=== PATIENT | male | born 1940 | race Caucasian/White ===

== ENCOUNTER 2017-10-07 03:03 | Emergency (ER) | payer MEDICARE ==
[2017-10-07 03:45] LABS: #Basophils 0.1 thou/uL (0.0-0.2); #Eosinphils 0.1 thou/uL (0.0-0.7); #Monocytes 0.8 thou/uL (0.11-0.59); #Neutrophils 9.6 thou/uL (1.40-6.50); %Basophils 0.8 % (0.0-1.0); %Eosinophils 0.6 % (0.0-10.0); %Lymphocytes 8.7 % (21.0-51.0); %Monocytes 6.8 % (0.0-10.0); Hemoglobin 13.5 g/dL (14.0-18.0); Mean Corpuscular HGB CONC 34.9 g/dL (32.0-36.0); Mean Corpuscular Hemoglobin 32.4 pg (27.0-31.0); Mean Corpuscular Volume 92.8 fl (80.0-94.0); Platelet Count 200 thou/uL (130-400); RBC Distribution Width 12.8 % (11.5-14.5); Red Blood Cell (RBC) Count 4.17 mill/uL (4.70-6.10); White Blood Cell (WBC) Count 11.5 thou/uL (4.8-10.8)
[2017-10-07 04:12] LABS: ALT (SGPT) 25 U/L (8-55); AST (SGOT) 27 U/L (5-34); Albumin 3.8 g/dL (3.4-4.8); Alkaline Phosphatase 80 U/L (40-150); Anion Gap 15 mmol/L (10-20); BUN (Urea Nitrogen) 20 mg/dL (8.4-25.7); Bilirubin, Total 1.2 mg/dL (0.2-1.2); Calc. Creatinine Clearance 0 mL/min (70-130); Calcium 9.9 mg/dL (7.8-10.44); Carbon Dioxide 24 mmol/L (23-31); Chloride 102 mmol/L (98-107); Estimated GFR-MDRD 72; Globulin 3.3 g/dL (2.4-3.5); Glucose 128 mg/dL (83-110); Potassium 4.2 mmol/L (3.5-5.1); Protein, Total 7.1 g/dL (5.8-8.1); Sodium 137 mmol/L (136-145)
[2017-10-07 04:15] LABS: CKMB 3.5 ng/mL (0-6.6); Troponin I Less than 0.010 ng/mL (< 0.028)
--- NOTE | 2017-10-07 08:43 | RAD ---
AP VIEW CHEST: HISTORY: Cough. FINDINGS: AP view chest was obtained on 10/07/17. Comparison is made to a previous exam from 07/11/14. AP view chest demonstrates improved aeration in the right lung base. Some cardiomegaly is seen. Pul monary vascular congestion is seen. 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 There are areas of linear density in the left lung base. This may represent areas of atelectasis o r pneumonia in the left lung base. This appears unchanged since the previous comparison radiograph o f chest from 07/13/14 and possibly slightly increased since the previous comparison chest radiograph f rom 07/22/14. IMPRESSION: 1. Cardiomegaly and pulmonary vascular congestion. 2. Areas of scar in the left lung base with some possible increasing developing area of further scar ring or patchy pneumonia or atelectasis in the left lung base. Correlate with followup radiographs. POS: [facility]
== END 2017-10-07 05:56 | disposition home or self-care (01) ==
LOC: ERS 03:03
DX: R05 Cough (principal); I25.10 Atherosclerotic heart disease of native coronary artery without angina pectoris; E78.5 Hyperlipidemia, unspecified; I10 Essential (primary) hypertension; Z79.899 Other long term (current) drug therapy
CPT/HCPCS: 36415; 71045; 80053; 82553; 83605; 83880; 84484; 85025; 87040; 93005; J7620

== ENCOUNTER 2017-10-31 11:24 | Outpatient (CLI) | payer MEDICARE, OTHER ==
--- NOTE | 2017-10-31 13:11 | RAD ---
TWO VIEWS CHEST: Comparison: 07-13-14 History: Dyspnea. FINDINGS: Two views of the chest shows a normal sized cardiomediastinal silhouette. Opacity seen in the left eric ng base which may represent atelectasis or an infiltrate. No pleural effusion is seen. IMPRESSION: Left basilar atelectasis versus infiltrate. POS: [facility]
== END 2017-10-31 11:25 | disposition home or self-care (01) ==
LOC: RAD 11:24
PROVIDERS: ATTEND Internal Medicine Critical Care Medicine
DX: R06.00 Dyspnea, unspecified (principal)
CPT/HCPCS: 71046

== ENCOUNTER 2018-03-05 09:55 | Outpatient (CLI) | payer MEDICARE, OTHER ==
--- NOTE | 2018-03-05 11:51 | RAD ---
CHEST ONE VIEW: HISTORY: Dyspnea. COMPARISON: 10/31/2017 FINDINGS: Atherosclerosis of the aorta. Normal cardiac silhouette. Pulmonary vessels and hilum are normal. H yperinflation with chronic changes. There is no pneumothorax. Osteopenic changes are identified. IMPRESSION: Chronic changes with hyperinflation. POS: [facility]
== END 2018-03-05 09:56 | disposition home or self-care (01) ==
LOC: RAD 09:55
PROVIDERS: ATTEND Internal Medicine Critical Care Medicine
DX: R06.00 Dyspnea, unspecified (principal); R09.89 Other specified symptoms and signs involving the circulatory and respiratory systems
CPT/HCPCS: 71046

== ENCOUNTER 2018-03-20 23:33 | Emergency (ER) | payer MEDICARE, OTHER ==
[2018-03-21 00:23] LABS: Bilirubin Negative (Negative); Blood, Urine Negative (Negative); Clarity CLEAR (Clear); Glucose, Urine (Dipstick) Negative (Negative); Leukocyte Negative (Negative); Nitrite Negative (Negative); Protein, Urine (Dipstick) Negative (Neg-Trace); Specific Gravity, Urine 1.004 (1.002-1.036); Urobilinogen 0.2 mg/dL (0.2-1.0); pH, Urine 6.5 (5.0-9.0)
[2018-03-21 00:24] LABS: #Eosinphils 0.2 thou/uL (0.0-0.7); #Lymphocytes 1.3 thou/uL (1.20-3.40); #Monocytes 0.9 thou/uL (0.11-0.59); #Neutrophils 8.3 thou/uL (1.40-6.50); %Basophils 0.1 % (0.0-1.0); %Eosinophils 1.5 % (0.0-10.0); %Lymphocytes 12.2 % (21.0-51.0); %Monocytes 8.7 % (0.0-10.0); %Neutrophils 77.5 % (42.0-75.0); Hemoglobin 11.6 g/dL (14.0-18.0); Mean Corpuscular HGB CONC 32.4 g/dL (32.0-36.0); Mean Corpuscular Hemoglobin 28.9 pg (27.0-31.0); Mean Corpuscular Volume 89.4 fL (78.0-98.0); Mean Platelet Volume 8.3 fL (7.4-10.4); Platelet Count 198 thou/uL (130-400); RBC Distribution Width 12.7 % (11.5-14.5); Red Blood Cell (RBC) Count 4.02 mill/uL (4.70-6.10); White Blood Cell (WBC) Count 10.7 thou/uL (4.8-10.8)
[2018-03-21 00:48] LABS: ALT (SGPT) 26 U/L (8-55); AST (SGOT) 32 U/L (5-34); Albumin 3.6 g/dL (3.4-4.8); Alkaline Phosphatase 79 U/L (40-150); Anion Gap 15 mmol/L (10-20); BUN (Urea Nitrogen) 14 mg/dL (8.4-25.7); Bilirubin, Total 0.8 mg/dL (0.2-1.2); Calc. Creatinine Clearance 0 mL/min (70-130); Calcium 9.6 mg/dL (7.8-10.44); Carbon Dioxide 24 mmol/L (23-31); Chloride 96 mmol/L (98-107); Estimated GFR-MDRD 64; Globulin 3.3 g/dL (2.4-3.5); Glucose 111 mg/dL (83-110); Potassium 3.6 mmol/L (3.5-5.1); Protein, Total 6.9 g/dL (5.8-8.1); Sodium 131 mmol/L (136-145)
[2018-03-21] MEDS ORDERED: Fentanyl 100 MCG/2 ML VIAL ONE (01:23)
[2018-03-21] MEDS ORDERED: Ondansetron HCl/PF 4 MG/2 ML Vial ONE (02:38)
[2018-03-21] MEDS ORDERED: Morphine 4 MG/ML VIAL ONE (02:38)
--- NOTE | 2018-03-21 07:48 | RAD ---
PA AND LATERAL VIEWS CHEST: HISTORY: Pneumonia. Cough. FINDINGS: Comparison is made with the exam on 03/05/2018. The heart size is borderline. The aorta is tortuous. A new increased density is seen in the left eric ng base. The possibility of pneumonia should be considered. POS: [facility]
--- NOTE | 2018-03-21 09:02 | ULT ---
PRELIMINARY REPORT/[facility]/EMERGENTY AFTER-HOURS PROCEDURE US Abdomen Limited, Right Upper Quadrant CLINICAL HISTORY: 77 years old, male; Pain and condition or disease; Other: Constipation x 2 days; Abdominal pain; Loca lized; Right upper quadrant (ruq) TECHNIQUE: Real-time ultrasound of the right upper quadrant with image documentation. COMPARISON: No relevant prior studies available. FINDINGS: Liver: No acute findings. No mass. No intrahepatic bile duct dilation. Gallbladder: Gallstone within the gallbladder neck. No significant gallbladder wall thickening or per icholecystic fluid. Negative [place] sign. Common bile duct: Unremarkable. Pancreas: Limited visualization due to bowel gas. Unremarkable as visualized. Right kidney: No acute findings. No stones. No solid mass. No hydronephrosis. IMPRESSION: Cholelithiasis. Thank you for allowing us to participate in the care of your patient. Dictated and Authenticated by: Deric Greenwood MD 03/21/2018 2:25 AM Central Time ([place] & [place]) FINAL REPORT SONOGRAM RIGHT UPPER QUADRANT PERFORMED ON AN EMERGENCY BASIS: Date: 03/21/18 Time: 0150 hours HISTORY: Right upper quadrant pain. FINDINGS/IMPRESSION: Findings agree with the preliminary report by Amee. Gallstones are confirmed. Gallbladder is somewhat distended without point tenderness over the gallbladder fossa. Clinical correlation regarding other signs and symptoms of acute cholecystitis is required. POS: [facility]
== END 2018-03-21 03:00 | disposition home or self-care (01) ==
LOC: ERS 23:33
DX: K80.20 Calculus of gallbladder without cholecystitis without obstruction (principal); J18.9 Pneumonia, unspecified organism; I25.10 Atherosclerotic heart disease of native coronary artery without angina pectoris; E78.5 Hyperlipidemia, unspecified; I10 Essential (primary) hypertension; Z79.899 Other long term (current) drug therapy; Z79.891 Long term (current) use of opiate analgesic
CPT/HCPCS: 36415; 71046; 76705; 80053; 81003; 83690; 85025; 96361; 96374; 96375; J2270; J2405; J3010

== ENCOUNTER 2018-03-27 13:14 | Emergency (ER) | payer MEDICARE, OTHER ==
[2018-03-27 13:52] LABS: #Basophils 0.1 thou/uL (0.0-0.2); #Eosinphils 0.2 thou/uL (0.0-0.7); #Lymphocytes 1.3 thou/uL (1.20-3.40); #Monocytes 0.5 thou/uL (0.11-0.59); #Neutrophils 2.9 thou/uL (1.40-6.50); %Basophils 1.3 % (0.0-1.0); %Eosinophils 3.1 % (0.0-10.0); %Lymphocytes 25.7 % (21.0-51.0); %Monocytes 10.7 % (0.0-10.0); %Neutrophils 59.2 % (42.0-75.0); Hemoglobin 12.5 g/dL (14.0-18.0); Mean Corpuscular Volume 91.1 fL (78.0-98.0); Mean Platelet Volume 8.1 fL (7.4-10.4); Platelet Count 199 thou/uL (130-400); RBC Distribution Width 13.4 % (11.5-14.5); Red Blood Cell (RBC) Count 4.17 mill/uL (4.70-6.10); White Blood Cell (WBC) Count 4.9 thou/uL (4.8-10.8)
[2018-03-27 14:16] LABS: ALT (SGPT) 10 U/L (8-55); AST (SGOT) 16 U/L (5-34); Albumin 3.3 g/dL (3.4-4.8); Alkaline Phosphatase 70 U/L (40-150); Anion Gap 12 mmol/L (10-20); BUN (Urea Nitrogen) 21 mg/dL (8.4-25.7); Bilirubin, Total 0.6 mg/dL (0.2-1.2); Calc. Creatinine Clearance 0 mL/min (70-130); Calcium 9.1 mg/dL (7.8-10.44); Carbon Dioxide 27 mmol/L (23-31); Chloride 103 mmol/L (98-107); Estimated GFR-MDRD 79; Globulin 2.9 g/dL (2.4-3.5); Glucose 125 mg/dL (83-110); Lipase 50 U/L (8-78); Protein, Total 6.2 g/dL (5.8-8.1); Sodium 138 mmol/L (136-145)
[2018-03-27 14:18] LABS: CKMB 4.1 ng/mL (0-6.6); Troponin I Less than 0.010 ng/mL (< 0.028)
--- NOTE | 2018-03-27 15:25 | ULT ---
SONOGRAM RIGHT UPPER QUADRANT: HISTORY: Right upper quadrant pain. FINDINGS: Echogenic shadowing stone is present within the dependent portion of the gallbladder lumen. No gallb ladder wall thickening or pericholecystic fluid. The common duct is 0.6 cm. No gallbladder wall thi ckening or pericholecystic fluid. The liver is unremarkable without focal mass or intrahepatic bilia ry dilatation. No free fluid. Gallbladder is upper limits of normal in size. IMPRESSION: Cholelithiasis. No evidence of acute biliary obstruction. POS: [facility]
[2018-03-27 15:40] LABS: Bilirubin Negative (Negative); Blood, Urine Negative (Negative); Clarity CLEAR (Clear); Glucose, Urine (Dipstick) Negative (Negative); Leukocyte Negative (Negative); Nitrite Negative (Negative); Protein, Urine (Dipstick) Negative (Neg-Trace); pH, Urine 6.5 (5.0-9.0)
== END 2018-03-27 17:29 | disposition home or self-care (01) ==
LOC: ERS 13:14
DX: K80.20 Calculus of gallbladder without cholecystitis without obstruction (principal); R09.89 Other specified symptoms and signs involving the circulatory and respiratory systems; E78.5 Hyperlipidemia, unspecified; Z79.899 Other long term (current) drug therapy
CPT/HCPCS: 36415; 76705; 80053; 81003; 82553; 83690; 84484; 85025; 93005; 96360

== ENCOUNTER 2018-05-13 09:09 | Outpatient (CLI) | payer MEDICARE, OTHER ==
--- NOTE | 2018-05-13 12:22 | RAD ---
CHEST 2 VIEWS: Date: 05/13/18 COMPARISON: 03/05/18. 04/16/18. HISTORY: Dyspnea. FINDINGS: Atherosclerosis of aorta. Normal cardiac silhouette. Pulmonary vessels and hilum are normal. Costophr enic angles are clear. Hyperinflation with chronic changes in the lung parenchyma. Possible left lowe r lobe infiltrate. No pneumothorax or osseous abnormalities. IMPRESSION: 1. Hyperinflation. 2. Atherosclerosis. 3. Left lower lobe infiltrate. POS: [facility]
== END 2018-05-13 09:10 | disposition home or self-care (01) ==
LOC: RAD 09:09
PROVIDERS: ATTEND Internal Medicine Critical Care Medicine
DX: R06.00 Dyspnea, unspecified (principal); R91.8 Other nonspecific abnormal finding of lung field; I70.0 Atherosclerosis of aorta
CPT/HCPCS: 36415; 71046; 82533

== ENCOUNTER 2018-06-25 09:48 | Outpatient (CLI) | payer MEDICARE, OTHER ==
--- NOTE | 2018-06-25 15:40 | NM ---
NUCLEAR MEDICINE [place] BRAIN: Date: 06/25/18 HISTORY: 77-year-old male with G20, Parkinson's disease. TECHNIQUE: 130 mg of potassium iodide administered PO 1 hour prior to injection of radiopharmaceutical. 4.5 mCi of I-123 Ioflupane injected IV. 3 hours later, SPECT images of brain obtained in axial plane. FINDINGS: There is normal uptake in the bilateral caudate heads. In comparison, there is relatively weaker upta ke symmetrically in the bilateral putamina. IMPRESSION: Equivocal results. Relatively weak, but not absent, activity in the bilateral putamina. This could ei ther represent early Parkinsonism or a non-Parkinsonian disease. POS: [facility]
== END 2018-06-25 09:49 | disposition home or self-care (01) ==
LOC: NM 09:48
PROVIDERS: ATTEND Psychiatry & Neurology Neurology
DX: G20 Parkinson's disease (principal)
CPT/HCPCS: 78607; A9584

== ENCOUNTER 2018-09-03 22:39 | Inpatient (IN) | payer MEDICARE, OTHER ==
[2018-09-03] MEDS ORDERED: Cefepime 2 GM VIAL ONE (23:10)
--- NOTE | 2018-09-03 23:19 | RAD ---
CHEST ONE VIEW 09/03/18 HISTORY: Dyspnea. COMPARISON: Chest radiograph 05/13/18. FINDINGS: New right basilar air space opacity. No scarring in the left lung base. No pneumothorax. Heart size is enlarged. No acute osseous abnormality. Rotator cuff arthropathy on the right. IMPRESSION: New right basilar air space opacity concerning for infection or aspiration. POS: [facility]
[2018-09-03 23:29] LABS: ALT (SGPT) Less than 7 U/L (8-55); AST (SGOT) 10 U/L (5-34); Alkaline Phosphatase 88 U/L (40-150); Anion Gap 16 mmol/L (10-20); BUN (Urea Nitrogen) 22 mg/dL (8.4-25.7); Bilirubin, Total 1.7 mg/dL (0.2-1.2); Calc. Creatinine Clearance 0 mL/min (70-130); Calcium 9.8 mg/dL (7.8-10.44); Carbon Dioxide 22 mmol/L (23-31); Chloride 98 mmol/L (98-107); Estimated GFR-MDRD 63; Globulin 3.1 g/dL (2.4-3.5); Glucose 123 mg/dL (83-110); Potassium 3.6 mmol/L (3.5-5.1); Protein, Total 7.1 g/dL (5.8-8.1); Sodium 132 mmol/L (136-145)
[2018-09-03] MEDS ORDERED: Acetaminophen 500 MG TAB ONE (23:48)
[2018-09-03 23:55] LABS: #Lymphocytes 0.8 thou/uL (1.20-3.40); #Monocytes 0.6 thou/uL (0.11-0.59); #Neutrophils 6.4 thou/uL (1.40-6.50); %Basophils 0.5 % (0.0-1.0); %Eosinophils 0.2 % (0.0-10.0); %Lymphocytes 10.2 % (21.0-51.0); %Monocytes 7.5 % (0.0-10.0); %Neutrophils 81.6 % (42.0-75.0); Hemoglobin 13.2 g/dL (14.0-18.0); Mean Corpuscular Hemoglobin 30.3 pg (27.0-31.0); Mean Corpuscular Volume 91.7 fL (78.0-98.0); Mean Platelet Volume 9.7 fL (7.4-10.4); Platelet Count 116 thou/uL (130-400); Platelet Morphology Comment Appears Decreased; RBC Distribution Width 12.7 % (11.5-14.5); Red Blood Cell (RBC) Count 4.35 mill/uL (4.70-6.10); White Blood Cell (WBC) Count 7.8 thou/uL (4.8-10.8)
[2018-09-04 00:07] LABS: Bilirubin Small (Negative); Blood, Urine Negative (Negative); Clarity CLEAR (Clear); Glucose, Urine (Dipstick) Negative (Negative); Leukocyte Negative (Negative); Nitrite Negative (Negative); Protein, Urine (Dipstick) 30 mg/dL (Neg-Trace); pH, Urine 5.5 (5.0-9.0)
[2018-09-04 00:09] LABS: Bacteria/HPF None Seen HPF (None Seen); Hyaline Casts/LPF 0-3 HYALINE CAST LPF (0-3 Hyaline); Pathc Cast-AUWi Flag 0.27 (0-2.49); RBC/HPF 0-3 HPF (0-3); Squamous Epithelial 0-3 HPF (0-3); WBC/HPF 0-3 HPF (0-3)
[2018-09-04] MEDS ORDERED: Ondansetron PF 4 MG/2 ML Vial IVP PRN (00:28)
[2018-09-04] MEDS ORDERED: Zolpidem Tartrate 5 MG TAB PO PRN (00:28)
[2018-09-04] MEDS ORDERED: Acetaminophen 325 MG TAB PO PRN (00:28)
[2018-09-04 02:55] LABS: #Lymphocytes 0.6 thou/uL (1.20-3.40); #Monocytes 0.6 thou/uL (0.11-0.59); #Neutrophils 5.5 thou/uL (1.40-6.50); %Basophils 0.2 % (0.0-1.0); %Eosinophils 0.2 % (0.0-10.0); %Lymphocytes 9.3 % (21.0-51.0); %Monocytes 8.5 % (0.0-10.0); %Neutrophils 81.8 % (42.0-75.0); Hemoglobin 11.3 g/dL (14.0-18.0); Mean Corpuscular HGB CONC 33.7 g/dL (32.0-36.0); Mean Corpuscular Hemoglobin 30.3 pg (27.0-31.0); Mean Corpuscular Volume 89.9 fL (78.0-98.0); Mean Platelet Volume 9.7 fL (7.4-10.4); Platelet Count 109 thou/uL (130-400); RBC Distribution Width 12.5 % (11.5-14.5); Red Blood Cell (RBC) Count 3.74 mill/uL (4.70-6.10); White Blood Cell (WBC) Count 6.7 thou/uL (4.8-10.8)
[2018-09-04 03:09] LABS: Lactic Acid 0.9 mmol/L (0.5-2.2)
[2018-09-04 03:22] VITALS: BMI 18.3
[2018-09-04 03:36] LABS: Troponin I Less than 0.010 ng/mL (< 0.028)
[2018-09-04 03:40] LABS: Anion Gap 15 mmol/L (10-20); BUN (Urea Nitrogen) 19 mg/dL (8.4-25.7); Calc. Creatinine Clearance 57 mL/min (70-130); Calcium 8.2 mg/dL (7.8-10.44); Carbon Dioxide 17 mmol/L (23-31); Chloride 105 mmol/L (98-107); Estimated GFR-MDRD 89; Glucose 126 mg/dL (83-110); Potassium 3.1 mmol/L (3.5-5.1); Sodium 134 mmol/L (136-145)
[2018-09-04] MEDS: Sodium Chloride 0.9% 1,000 ML IV SCH (04:11)
--- NOTE | 2018-09-04 04:38 | HP ---
ADMITTING COMPLAINT: Cough and fevers. HISTORY OF PRESENT ILLNESS: This is a 77-year-old male, presenting to the hospital complaining of cough, fevers, and chills. The patient had evaluation done in the ER, chest x-ray done, was found to have pneumonia in right lower lobe middle lobe. The patient states that otherwise he has had past 3 to 4 weeks of fevers and chills. Temperatures taken axillary at home were elevated. The patient of note admits to past medical history of coronary artery disease, hypertension, prostate enlargement as well as hyperlipidemia. Denies any other issues. The patient does state that he was a smoker all of his life, however, quit approximately 10 years ago. The patient also admits that he has had an unintentional weight loss about 10-15 pounds in the last 7 to 8 months. The patient denies any other alleviating or aggravating factors. No other associated symptoms or complaints. The patient was seen examined in the ER. at bedside. All questions answered. REVIEW OF SYSTEMS: All systems reviewed. Pertinent positive in HPI, otherwise negative. ALLERGIES: PENICILLIN, UNKNOWN REACTION WHEN THE PATIENT TAKES PENICILLIN. HOME MEDICATIONS: See MAR. PAST MEDICAL HISTORY: Hypertension, hyperlipidemia, coronary artery disease, and BPH. FAMILY HISTORY: Positive for hypertension. SOCIAL HISTORY: Denies smoking currently, quit 10 years ago. Social drinker. PHYSICAL EXAMINATION: GENERAL: The patient is lying in bed, acute. No discomfort. HEENT: Pupils are equal, round, and reactive to light and accommodation. Oral cavity is moist and pink. NECK: Supple, mobile, nontender. Thyroid appreciated. PULMONARY: Clear to auscultation bilaterally. No increase in AP diameter. No respiratory distress. CARDIOVASCULAR: Regular rate and rhythm. S1 and S2. Faint murmur appreciated. ABDOMEN: Positive bowel sounds. Soft, nontender, nondistended. EXTREMITIES: 2+ peripheral pulses. No cyanosis, clubbing, or edema. NEUROLOGIC: Cranial nerves 2 through 12 are intact. No loss of sensory function. VITAL SIGNS: Blood pressure 120/85, respiratory rate of 18, temperature of 101.8, O2 saturation 98% on room air. LABORATORY DATA: CBC within normal limits. Basic metabolic panel, BNP at 132. Lactic acid slightly elevated at 2.5, otherwise normal. UA shows proteinuria and small amount of bilirubin. Chest x-ray positive for right basilar opacity concerning for pneumonia. ASSESSMENT: 1. Pneumonia. 2. Emphysema. 3. Hypertension. 4. BPH. 5. Hyperlipidemia. PLAN: At this point in time, we will admit the patient to internal medicine team. We will start the patient on Levaquin. We will give IV fluids as well at a low rate given concern for hypertension, resume home medications as needed. The patient wishes to remain a full code, p.r.n. medications. We will see how the patient days. Case and plan were discussed with patient and at length. They understood and agreed with this plan. Job ID: [id number]
[2018-09-04 08:11] LABS: Troponin I 0.012 ng/mL (< 0.028)
--- NOTE | 2018-09-04 08:24 | CT ---
PRELIMINARY REPORT/[facility]/EMERGENCY AFTER HOURS PROCEDURE: EXAM: CT Chest Without Contrast EXAM DATE/TIME: 09/04/2018 1:46 AM CLINICAL HISTORY: 77 years old, male; Signs and symptoms; Cough; Patient HX: Cough, pneumonia, copd, smoker, weight los s TECHNIQUE: Imaging protocol: Axial computed tomography images of the chest without intravenous contrast. Coronal reformatted images were created and reviewed. COMPARISON: No relevant prior studies available. FINDINGS: Lungs: Extensive multifocal consolidation in the lower lobes bilaterally, lingula, right middle lobe, and less severely in the posterolateral right upper lobe. The consolidation in the lingula is depend ent and consolidation in the right middle lobe and lower lobes is more severe dependently. Findings are compatible with pneumonia, very likely secondary to aspiration given the distribution. [place] t atelectasis in the left lower lobe. Pleural space: Normal. No pneumothorax. No pleural effusion. Heart: Normal. No cardiomegaly. No pericardial effusion. Aorta: 4.2 cm fusiform aneurysmal dilatation of the ascending aorta. No rupture. Lymph nodes: Unremarkable. No enlarged lymph nodes. Bones/joints: Unremarkable. No acute fracture. Soft tissues: Unremarkable. Gallbladder and bile ducts: Cholelithiasis. No cholecystitis or biliary ductal dilatation. IMPRESSION: 1. Extensive bilateral pneumonia in the mid to lower lungs, likely secondary to aspiration as above. 2. 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 No rupture. Thank you for allowing us to participate in the care of your patient. Dictated and Authenticated by: Florin H[place] MD 09/04/2018 2:29 AM Central Time ([place] & [place]) FINAL REPORT CT CHEST NONCONTRAST: DATE: 09/04/2018. DATE: Performed on an emergency basis at 0147 hours. HISTORY: Pneumonia. Cough. Weight loss. FINDINGS: Agree with the preliminary report by Dr. [place]. From [facility]. Extensive bibasilar consol idation. Consider aspiration. Prominent arterial calcification. Mild dilatation of the ascending aorta. Cholelithiasis. POS: [facility]
[2018-09-04] MEDS ORDERED: Isosorbide Dinitrate 5 MG TAB PO SCH (09:00)
[2018-09-04] MEDS ORDERED: MIDODRINE HCL PO PRN (10:48)
[2018-09-04] MEDS ORDERED: Cetirizine HCl 10 MG TAB PO PRN (10:48)
[2018-09-04] MEDS ORDERED: Loratadine 10 MG TAB PO PRN (10:54)
--- NOTE | 2018-09-04 11:01 | PDOC.PN ---
- Subjective Encounter Start Date: 09/04/18 Encounter Start Time: 10:59 Subjective: fever better, still coughing - Objective Resuscitation Status - Order Detail: 09/04/18 00:28 Resuscitation Status Routine Resuscitation Status: FULL: Full Resuscitation Discussed with: patient BETTY Reviewed: Yes Vital Signs & Weight: Vital Signs (12 hours) Temp Pulse Resp BP Pulse Ox 09/04/18 07:40 98.8 F 71 18 121/61 97 09/04/18 04:46 96 09/04/18 04:00 98.1 F 79 16 124/67 89 L 09/04/18 02:35 98.7 F 87 18 128/70 96 Weight Weight 120 lb 8 oz Result Diagrams: 09/04/18 02:45 09/04/18 02:45 Phys Exam - Physical Examination Neck: no JVD decreased BS, RLL rales Cardiovascular: RRR, no significant murmur Gastrointestinal: soft, positive bowel sounds Musculoskeletal: no edema Dx/Plan (1) PNA (pneumonia) Code(s): J18.9 - PNEUMONIA, UNSPECIFIED ORGANISM Status: Acute Qualifiers: Laterality: right Lung location: lower lobe of lung (2) COPD (chronic obstructive pulmonary disease) Status: Chronic Qualifiers: COPD type: emphysema Emphysema type: unspecified Qualified Code(s): J43.9 - Emphysema, unspecified (3) CAD (coronary artery disease) Code(s): I25.10 - ATHSCL HEART DISEASE OF [place] CORONARY ARTERY W/O ANG PCTRS Status: Acute Qualifiers: Coronary Disease-Associated Artery/Lesion type: [place] artery [place] vs. transplanted heart: [place] heart Associated angina: without angina Qualified Code(s): I25.10 - Atherosclerotic heart disease of [place] coronary artery without angina pectoris (4) HTN (hypertension) Code(s): I10 - ESSENTIAL (PRIMARY) HYPERTENSION Status: Acute Qualifiers: Hypertension type: essential hypertension Qualified Code(s): I10 - Essential (primary) hypertension - Plan Cultures pending, cont antibx -: cont home meds * .
[2018-09-04] MEDS: Heparin 5,000 UNITS/ML VIAL SC SCH ×2 (12:48→21:50)
[2018-09-04] MEDS: Carbidopa/Levodopa 25-100 mg Tablet PO SCH ×2 (15:49→21:50)
[2018-09-04] MEDS: Mometasone/Formoterol 120 PUFF INHALER INH SCH (18:47)
[2018-09-04] MEDS ORDERED: Artificial Tears 18 DROP/0.9 ML EA EYE PRN (20:07)
[2018-09-04] MEDS ORDERED: Tamsulosin HCl 0.4 MG CAP PO SCH (21:00)
[2018-09-04] MEDS ORDERED: Atorvastatin Calcium 40 MG TAB PO SCH ×2 (21:00)
[2018-09-04] MEDS: Aspirin 81 mg Enteric Coated Tablet PO SCH (21:50)
[2018-09-04] MEDS: Atorvastatin Calcium 40 MG TAB PO SCH (21:50)
--- NOTE | 2018-09-05 00:15 | CON ---
DATE OF CONSULTATION: HISTORY OF PRESENT ILLNESS: Mr. Dolan is a pleasant 77-year-old male. His says he has been doing extremely well lately with no cough. She says that he did not have fever at home, leaning on to this, so she had no reason to suspect an infection. He subsequently has been admitted with a diagnosis of pneumonia. We were consulted. PAST MEDICAL HISTORY: 1. Remarkable for admission in July 01 with volvulus leading to a laparotomy. 2. History of coronary artery disease. 3. History of hypertension. 4. Lipid disorder. 5. BPH. 6. Rotator cuff surgery. 7. Bilateral knee surgery. 8. Cataract surgery. SOCIAL HISTORY: he is a former smoker. ALLERGIES: REPORTS AN ALLERGY TO PENICILLIN. FAMILY HISTORY: Negative for lung disease in early age. REVIEW OF SYSTEMS: A 10-point review of systems is negative. He says he feels 100% better than when he came in. OBJECTIVE: VITAL SIGNS: On exam, he is afebrile, heart rates in the 70s, respiratory rate is 18, oximetry is 93% on room air, blood pressure 116/66. HEENT: Pupils are equal. Sclerae anicteric. NECK: Supple. No lymphadenopathy. LUNGS: Remarkable for crackles at both lung bases. HEART: Regular rhythm, S1 and S2 are normal. No murmur, gallop, or rub. ABDOMEN: Soft and nontender. No masses. EXTREMITIES: Without clubbing, cyanosis, or edema. NEUROLOGIC: Grossly nonfocal. LABORATORY DATA: CT shows dense alveolar infiltrate in both lung bases posteriorly. IMPRESSION: Pneumonia. He has no history to suggest aspiration, but he certainly could have silent aspiration. This is clearly community-acquired. He is clinically improving. From a chronic obstructive pulmonary disease standpoint, he appears to be stable. I will be happy to follow the other physicians caring for him. TIME SPENT: This is a 70-minute consult, 50% of the time spent on the unit coordinating care. Job ID: [id number]
[2018-09-05] MEDS: Sodium Chloride 0.9% 1,000 ML IV SCH (00:41)
[2018-09-05] MEDS: guaiFENesin ER 600 MG TAB PO PRN ×3 (01:57→23:40)
[2018-09-05] MEDS: Mometasone/Formoterol 120 PUFF INHALER INH SCH ×2 (06:05→20:09)
[2018-09-05] MEDS ORDERED: Non-Formulary Item 1 EACH (Fluticasone/Vilanterol [Breo Ellipta] 1 PUFF) INH SCH (09:00)
[2018-09-05] MEDS: Carbidopa/Levodopa 25-100 mg Tablet PO SCH ×3 (09:20→21:44)
[2018-09-05] MEDS: Heparin 5,000 UNITS/ML VIAL SC SCH (09:24)
--- NOTE | 2018-09-05 10:16 | PRG ---
DATE OF SERVICE: 09/05/2018 SUBJECTIVE: Bobby Dolan says he feels 100% better. He is sitting up in a chair, smiling. OBJECTIVE: GENERAL: He is in no distress. VITAL SIGNS: Oximetry is 92% on room air, heart rate is 87. He is afebrile, respiratory rate is 18, blood pressure 121/61. LUNGS: Remarkable for crackles at both lung bases. HEART: Regular rhythm. ABDOMEN: Soft. LABORATORY DATA: White count 6.7, hemoglobin 11.3, platelets 109. Sodium 134, potassium 3.1, chloride 105, bicarb 17, BUN 19, and creatinine 0.84. IMPRESSION: Respiratory failure. PLAN: We will switch him to p.o. antimicrobial therapy and consider discharging him in the morning, if he is stable throughout today. They live all way out in [place], so they are over an hour away from the hospital, so it is probably worthwhile to keep him one more night. I will see him in the office in followup in 2 weeks with a chest x-ray. Job ID: [id number]
--- NOTE | 2018-09-05 15:38 | RAD ---
MODIFIED BARIUM SWALLOW WITH SPEECH THERAPIST: Date; 09/05/18 HISTORY: Oropharyngeal dysphagia and feeding difficulties. EXPOSURE: 1.2 minutes of fluoroscopic time and 8.455 Gy*cm^2. FINDINGS/IMPRESSION: A modified barium swallow was performed by speech therapist. Penetration was seen with a large straw sip of thin liquids and also with residua during a swallow of regular diet/cracker. Please see dedicated speech therapy report for specific findings and recommendations. POS: [facility]
--- NOTE | 2018-09-05 16:17 | PDOC.PN ---
- Subjective Encounter Start Date: 09/05/18 Encounter Start Time: 14:00 Patient seen and examined for Sepsis. Feels better. No CP. Productive cough +. No new complaints. No overnight events - Objective Resuscitation Status - Order Detail: 09/04/18 00:28 Resuscitation Status Routine Resuscitation Status: FULL: Full Resuscitation Discussed with: patient MAR Reviewed: Yes Vital Signs & Weight: Vital Signs (12 hours) Temp Pulse Resp BP Pulse Ox 09/05/18 15:42 97.6 F 63 16 155/74 H 92 L 09/05/18 13:39 69 16 91 L 09/05/18 11:24 97.9 F 75 16 121/68 94 L 09/05/18 08:55 92 L 09/05/18 07:46 98.0 F 87 18 121/61 92 L 09/05/18 06:03 64 16 90 L Weight Weight 120 lb 8 oz I&O: 09/04/18 09/05/18 09/06/18 06:59 06:59 06:59 Intake Total 650 Balance 650 Result Diagrams: 09/04/18 02:45 09/04/18 02:45 EKG Reviewed by me: Yes (Tele SR) Phys Exam - Physical Examination Constitutional: NAD Respiratory: no wheezing, no rhonchi Cardiovascular: RRR, no rub Bibasilar rales Gastrointestinal: soft, non-tender, positive bowel sounds Musculoskeletal: no edema Neurological: non-focal, moves all 4 limbs Dx/Plan - Plan DVT proph w/SCDs 1. Acute respiratory failure/Sepsis with acute organ dysfunction due to B/L Pneumonia 2. Lactic acidosis 3. HTN 4. CAD 5. Swallow dysfunction 6. Hypokalemia 7. Thrombocytopenia/PCN allergy/BPH PLAN: Cont PO Atbx [employer] eval PT eval AM labs Review of Systems - Review of Systems Respiratory: negative: Cough, Dry, Shortness of Breath, Hemoptysis, SOB with Excertion, Pleuritic Pain, Sputum, Wheezing Cardiovascular: negative: chest pain, palpitations, orthopnea, paroxysmal nocturnal dyspnea, edema, light headedness, other - Medications/Allergies Allergies/Adverse Reactions: Allergies Allergy/AdvReac Type Severity Reaction Status Date / Time Penicillins Allergy Verified 09/04/18 03:31 Medications: Current Medications Acetaminophen (Tylenol) 650 mg PO Q4H PRN PRN Reason: Headache/Fever/Mild Pain (1-3) Albuterol/Ipratropium (Duoneb) 3 ml NEB [id number] PRN PRN Reason: SOB &/or Wheezing Albuterol/Ipratropium (Duoneb) 3 ml NEB TID-RT [facility] Last Admin: 09/05/18 13:39 Dose: 3 ml Artificial Tears (Tears Naturale) 1 drop EA EYE PRN PRN PRN Reason: . Last Admin: 09/04/18 21:48 Dose: 1 drop Aspirin (Ecotrin) 81 mg PO HS [facility] Last Admin: 09/04/18 21:50 Dose: 81 mg Atorvastatin Calcium (Lipitor) 40 mg PO HS [facility] Last Admin: 09/04/18 21:50 Dose: 40 mg Carbidopa/Levodopa (Sinemet 25-100) 1 tab PO TID [facility] Last Admin: 09/05/18 09:20 Dose: 1 tab Guaifenesin (Mucinex) 600 mg PO BIDPRN PRN PRN Reason: Congestion/cough Last Admin: 09/05/18 09:20 Dose: 600 mg Levofloxacin (Levaquin) 500 mg PO 0600 [facility] Loratadine (Claritin) 10 mg PO DAILYPRN PRN PRN Reason: ALLERGY Midodrine (Proamatine) 5 mg PO TIDPRN PRN PRN Reason: HYPOTENSION Mometasone Furoate/Formoterol Fumar (Dulera 100 Mcg/5 Mcg Inhaler) 2 puff INH BID-RT [facility] Last Admin: 09/05/18 06:05 Dose: 2 puff Ondansetron HCl (Zofran) 4 mg IVP Q6H PRN PRN Reason: Nausea/Vomiting Sodium Chloride (Flush - Normal Saline) 10 ml IVF Q12HR PRN PRN Reason: Saline Flush Last Admin: 09/04/18 04:12 Dose: 10 ml Zolpidem Tartrate (Ambien) 5 mg PO HSPRN PRN PRN Reason: Insomnia
[2018-09-05] MEDS: Midodrine HCl 5 MG TAB PO PRN (18:06)
[2018-09-05] MEDS: Aspirin 81 mg Enteric Coated Tablet PO SCH (21:44)
[2018-09-05] MEDS: Atorvastatin Calcium 40 MG TAB PO SCH (21:44)
[2018-09-06 06:09] LABS: #Eosinphils 0.1 thou/uL (0.0-0.7); #Lymphocytes 0.9 thou/uL (1.20-3.40); #Monocytes 0.5 thou/uL (0.11-0.59); #Neutrophils 4.4 thou/uL (1.40-6.50); %Basophils 0.1 % (0.0-1.0); %Eosinophils 2.5 % (0.0-10.0); %Lymphocytes 14.5 % (21.0-51.0); %Monocytes 8.5 % (0.0-10.0); %Neutrophils 74.4 % (42.0-75.0); Hemoglobin 10.6 g/dL (14.0-18.0); Mean Corpuscular HGB CONC 34.8 g/dL (32.0-36.0); Mean Corpuscular Volume 88.9 fL (78.0-98.0); Mean Platelet Volume 9.7 fL (7.4-10.4); Platelet Count 133 thou/uL (130-400); RBC Distribution Width 12.4 % (11.5-14.5); White Blood Cell (WBC) Count 5.9 thou/uL (4.8-10.8)
[2018-09-06 06:30] LABS: ALT (SGPT) Less than 7 U/L (8-55); AST (SGOT) 12 U/L (5-34); Albumin 3.1 g/dL (3.4-4.8); Alkaline Phosphatase 65 U/L (40-150); Anion Gap 12 mmol/L (10-20); BUN (Urea Nitrogen) 10 mg/dL (8.4-25.7); Bilirubin, Total 0.8 mg/dL (0.2-1.2); Calc. Creatinine Clearance 61 mL/min (70-130); Calcium 8.6 mg/dL (7.8-10.44); Carbon Dioxide 23 mmol/L (23-31); Chloride 106 mmol/L (98-107); Estimated GFR-MDRD Greater than 90; Globulin 2.4 g/dL (2.4-3.5); Glucose 109 mg/dL (83-110); Magnesium 1.2 mg/dL (1.6-2.6); Protein, Total 5.5 g/dL (5.8-8.1); Sodium 138 mmol/L (136-145)
[2018-09-06 07:54] VITALS: TEMP 98.1
[2018-09-06] MEDS ORDERED: Magnesium Sulfate 4 GM in Sodium Chloride 0.9% 250 ML 250 ML IVPB SCH (08:15)
[2018-09-06] MEDS: Midodrine HCl 5 MG TAB PO PRN (09:40)
[2018-09-06] MEDS: guaiFENesin ER 600 MG TAB PO PRN (09:40)
[2018-09-06] MEDS: Carbidopa/Levodopa 25-100 mg Tablet PO SCH (09:40)
[2018-09-06] MEDS: Mometasone/Formoterol 120 PUFF INHALER INH SCH (09:43)
[2018-09-06 11:37] VITALS: BP 153/82
--- NOTE | 2018-09-06 13:18 | PRG ---
DATE OF SERVICE: 09/06/2018 SUBJECTIVE: He is sitting up in a chair, says he is not short of breath. He wants to go home. OBJECTIVE: VITAL SIGNS: On exam, his temperature is 98.1, pulse 60, respirations 16, O2 saturation 98% on room air, and blood pressure 153/82. HEENT: Unremarkable. NECK: No JVD. LUNGS: Clear, but diminished breath sounds. CARDIAC: S1 and S2. Regular. ABDOMEN: Soft. EXTREMITIES: No edema. LABORATORY DATA: White blood cell count 5.9, hematocrit 30, and platelet count 133. Sodium 138, potassium 3, chloride 106, CO2 of 23, BUN 10, creatinine 0.7, and glucose 109. ASSESSMENT: 1. Status post respiratory failure secondary to pneumonia. 2. Chronic obstructive pulmonary disease. RECOMMENDATIONS: Mr. Dolan is cleared to go home from pulmonary standpoint. He has been instructed to see Dr. Barboza in a couple of weeks. I would finish up 7 full days of antibiotics. Continue his breathing treatments. Job ID: [id number]
--- NOTE | 2018-09-06 15:43 | DIS ---
DATE OF ADMISSION: 09/04/2018 DATE OF DISCHARGE: 09/06/2018 DISCHARGE DISPOSITION: Home. FOLLOWUP: 1. Follow up with primary care physician, Dr. Quiles, in 1 week. 2. Follow up with Dr. Barboza in 2 weeks. RECOMMENDATIONS: 1. A chest x-ray after four weeks is recommended. Primary care physician advised to follow. 2. Repeat basic metabolic profile next week is recommended. Primary care physician advised to follow. DISCHARGE MEDICATIONS: 1. Levaquin 500 mg daily for 1 week. 2. Mucinex as needed. 3. Slow-Mag 64 mg b.i.d. for next 10 days. 4. Potassium chloride 10 mEq daily for next 10 days. All other home medications were left unchanged. ALLERGIES: PENICILLIN. BRIEF HOSPITAL COURSE: The patient is a 77-year-old male, who presented to the emergency room on September 03, 2018, with cough, fever along with low oxygen saturation. His temperature in the emergency room was 102.8 with O2 saturation of 89% on 3 L nasal cannula. Please refer to the history and physical for further details. The patient was admitted to the hospital with a diagnosis of acute hypoxic respiratory failure along with sepsis secondary to bilateral pneumonia. CT scan of the chest done in the emergency room showed extensive bilateral pneumonia in the mid to lower lungs. He was started on IV Levaquin. He was also evaluated by Pulmonary, Dr. Barboza. He was placed on gentle IV hydration. He was found to have electrolyte abnormalities, which were replaced. Lactic acid on admission was 2.5, that improved to 0.9. He also had abnormal LFTs on admission at 1.7, that improved to 0.8. He has been cleared by Pulmonary for discharge. FINAL DIAGNOSES: 1. Acute hypoxic respiratory failure. 2. Sepsis with acute organ dysfunction secondary to bilateral pneumonia, suspected pneumococcal. 3. Lactic acidosis. 4. Hypertension. 5. Coronary artery disease. 6. Swallow dysfunction. The patient had a modified swallow eval this admission. He has been discharged home on mechanical soft diet with thin liquids. 7. Hypokalemia, replaced. 8. Hypomagnesemia, replaced. 9. Thrombocytopenia. 10. Benign prostatic hypertrophy. 11. Penicillin allergy. 12. Chronic anemia. 13. Cholelithiasis. 14. 4.2 cm aneurysmal dilatation of the ascending aorta on the CT. PLAN: Plan of care was discussed with the patient and the family at the bedside. They stated understanding. Job ID: [id number]
--- NOTE | 2018-09-06 17:16 | EKG ---
Test Reason : Blood Pressure : / mmHG Vent. Rate : 120 BPM Atrial Rate : 120 BPM P-R Int : 140 ms QRS Dur : 092 ms QT Int : 328 ms P-R-T Axes : 029 -87 076 degrees QTc Int : 463 ms Sinus tachycardia Possible Left atrial enlargement Pulmonary disease pattern Incomplete right bundle branch block Left anterior fascicular block Nonspecific T wave abnormality Abnormal ECG Confirmed by LUIS MANUEL CHO ([id number]), editorial manager KYLEE ROSS ([id number] on 09/06/2018 5:16:11 PM Referred By: Confirmed By:LUIS MANUEL CHO
== END 2018-09-06 14:47 | disposition home or self-care (01) | DRG 871 ==
LOC: ERS 22:39 → ERHOLD 09-04 00:04 → 2SE 09-04 02:25
PROVIDERS: ADMIT Internal Medicine; ATTEND Internal Medicine
DX: A41.9 Sepsis, unspecified organism (principal); J18.9 Pneumonia, unspecified organism; J96.01 Acute respiratory failure with hypoxia; J44.0 Chronic obstructive pulmonary disease with (acute) lower respiratory infection; E87.2 Acidosis; J43.9 Emphysema, unspecified; I10 Essential (primary) hypertension; N40.0 Benign prostatic hyperplasia without lower urinary tract symptoms; E78.5 Hyperlipidemia, unspecified; I25.10 Atherosclerotic heart disease of native coronary artery without angina pectoris; R13.10 Dysphagia, unspecified; E87.6 Hypokalemia; D69.6 Thrombocytopenia, unspecified; E83.42 Hypomagnesemia; D64.9 Anemia, unspecified; K80.20 Calculus of gallbladder without cholecystitis without obstruction
CPT/HCPCS: 36415; 71045; 71250; 74230; 80048; 80053; 81003; 81015; 83605; 83735; 84484; 85025; 87040; 87086; 87804; 93005; 94640; 94760; 96361; 96365; 96367; J0692; J1644; J1956; J3370; J3475; J7050; J7620

== ENCOUNTER 2018-10-02 09:04 | Outpatient (CLI) | payer MEDICARE, OTHER ==
--- NOTE | 2018-10-02 09:53 | RAD ---
TWO VIEWS CHEST: Comparison: 05-13-18 History: Dyspnea. FINDINGS: Two views of the chest shows a normal sized cardiomediastinal silhouette with atherosclerotic calcifi cations in the aorta. There is no evidence of consolidation, mass or pleural effusion. Degenerative c hanges are seen in the spine. IMPRESSION: No evidence of acute cardiopulmonary disease. POS: [facility]
== END 2018-10-02 09:05 | disposition home or self-care (01) ==
LOC: RAD 09:04
PROVIDERS: ATTEND Internal Medicine Critical Care Medicine
DX: R06.00 Dyspnea, unspecified (principal)
CPT/HCPCS: 71046

== ENCOUNTER 2019-02-13 10:55 | Outpatient (CLI) | payer MEDICARE, OTHER ==
--- NOTE | 2019-02-13 12:32 | RAD ---
2 VIEWS CHEST: Date: 02/13/19 COMPARISON: 10/02/18. HISTORY: Dyspnea. FINDINGS: There is increased linear interstitial density in bilateral perihilar regions and both lung bases, pr ogressed since the prior exam. There is no pneumothorax. Lungs are hyperinflated. No lobar consolidat ion or evidence of pulmonary edema seen. There is atherosclerotic calcification of the aortic arch. H eart and mediastinal contours are stable. IMPRESSION: There is increased linear interstitial density noted within the perihilar regions and both lung bases with pulmonary hyperinflation. Basilar opacity has progressed when compared to 10/02/18 exam. This m ay signify infectious pneumonitis or aspiration. Short-term follow-up imaging following treatment adv ised. POS: OFF
== END 2019-02-13 10:56 | disposition home or self-care (01) ==
LOC: RAD 10:55
PROVIDERS: ATTEND Internal Medicine Critical Care Medicine
DX: R06.00 Dyspnea, unspecified (principal); R91.8 Other nonspecific abnormal finding of lung field
CPT/HCPCS: 71046

== ENCOUNTER 2019-02-17 09:33 | Outpatient (CLI) | payer MEDICARE, OTHER ==
--- NOTE | 2019-02-17 09:52 | RAD ---
2 VIEWS CHEST: 02/17/2019 COMPARISON: 02/13/2019. HISTORY: Shortness of breath. FINDINGS: Stable increased linear interstitial density and pulmonary hyperinflation suggests COPD in the proper clinical setting. There is superimposed hazy increased density in both lung bases inferiorly suggesting scar, volume loss, or bibasilar infiltrate. There is atherosclerotic calcification of the aortic arch. There is no focal consolidation or alveolar edema. No pneumothorax. IMPRESSION: Interstitial prominence and pulmonary hyperinflation suggests COPD in the proper clinical setting. Barrett perimposed increased linear density in both lung bases as above. Transcribed Date/Time: 02/17/2019 10:02 AM
== END 2019-02-17 09:34 | disposition home or self-care (01) ==
LOC: RAD 09:33
PROVIDERS: ATTEND Internal Medicine Critical Care Medicine
DX: R06.00 Dyspnea, unspecified (principal); J98.4 Other disorders of lung
CPT/HCPCS: 71046

== ENCOUNTER 2019-04-02 09:46 | Outpatient (CLI) | payer MEDICARE, OTHER ==
--- NOTE | 2019-04-02 10:46 | RAD ---
CHEST TWO VIEWS: HISTORY: Dyspnea. COMPARISON: 02/16/2019 FINDINGS: Bilateral hyperinflation and chronic linear and interstitial lung changes, particularly in the basis. Old granulomatous disease. No confluent pneumonia, overt edema, pleural effusion or other acute proc ess. IMPRESSION: Stable chronic lung changes. POS: TPC
== END 2019-04-02 09:47 | disposition home or self-care (01) ==
LOC: RAD 09:46
PROVIDERS: ATTEND Internal Medicine Critical Care Medicine
DX: R06.00 Dyspnea, unspecified (principal)
CPT/HCPCS: 71046

== ENCOUNTER 2019-07-23 11:20 | Outpatient (CLI) | payer MEDICARE, OTHER ==
--- NOTE | 2019-07-23 11:37 | RAD ---
XR Chest Pa Lat @ POB HISTORY: Dyspnea COMPARISON: 04/02/2019 FINDINGS: The heart size is normal. The lungs are well expanded without focal areas of consolidation, pneumothorax or pleural effusions. Chronic changes in the lungs are again noted. Postop changes of right rotator cuff repair are redemonstrated. IMPRESSION: No radiographic evidence of acute cardiopulmonary process.
== END 2019-07-23 11:21 | disposition home or self-care (01) ==
LOC: RAD 11:20
PROVIDERS: ATTEND Internal Medicine Critical Care Medicine
DX: R06.00 Dyspnea, unspecified (principal)
CPT/HCPCS: 71046

== ENCOUNTER 2020-02-23 09:29 | Outpatient (CLI) | payer MEDICARE, OTHER ==
--- NOTE | 2020-02-23 11:04 | RAD ---
PA AND LATERAL VIEWS CHEST: Date: 02/23/2020 HISTORY: Dyspnea. COMPARISON: 07/23/2019. FINDINGS: The heart size is normal. The lungs are well expanded without focal areas of consolidation, pneumotho races, or pleural effusions. Chronic changes are again seen. Postop changes of right rotator cuff rep air are redemonstrated. IMPRESSION: Stable exam. No acute process. POS: OFF
== END 2020-02-23 09:30 | disposition home or self-care (01) ==
LOC: BICRAD 09:29
PROVIDERS: ATTEND Internal Medicine Critical Care Medicine
DX: R06.00 Dyspnea, unspecified (principal)
CPT/HCPCS: 71046

== ENCOUNTER 2020-09-15 10:56 | Outpatient (CLI) | payer MEDICARE, OTHER | END 2020-09-15 10:57 | disposition home or self-care (01) | LOC: BICRAD 10:56 | PROVIDERS: ATTEND Internal Medicine Critical Care Medicine | DX: R06.00 Dyspnea, unspecified (principal); R91.8 Other nonspecific abnormal finding of lung field | CPT/HCPCS: 71046 ==

== ENCOUNTER 2021-04-20 13:15 | Outpatient (CLI) | payer MEDICARE, OTHER | END 2021-04-20 13:16 | disposition home or self-care (01) | LOC: RAD 13:15 | PROVIDERS: ATTEND Internal Medicine Critical Care Medicine | DX: R06.00 Dyspnea, unspecified (principal); J43.9 Emphysema, unspecified | CPT/HCPCS: 71046 ==

== ENCOUNTER 2021-11-10 09:09 | Outpatient (CLI) | payer MEDICARE, OTHER | END 2021-11-10 09:10 | disposition home or self-care (01) | LOC: RAD 09:09 | PROVIDERS: ATTEND Internal Medicine Critical Care Medicine | DX: R06.00 Dyspnea, unspecified (principal); J44.9 Chronic obstructive pulmonary disease, unspecified; I51.7 Cardiomegaly | CPT/HCPCS: 71046 ==

== ENCOUNTER 2022-05-15 13:10 | Outpatient (CLI) | payer OTHER | END 2022-05-15 13:11 | disposition home or self-care (01) | LOC: RAD 13:10 | PROVIDERS: ATTEND Internal Medicine Critical Care Medicine | DX: R06.00 Dyspnea, unspecified (principal); J98.4 Other disorders of lung; I70.0 Atherosclerosis of aorta | CPT/HCPCS: 71046 ==

== ENCOUNTER 2023-02-04 09:49 | Outpatient (CLI) | payer OTHER | END 2023-02-04 09:50 | disposition home or self-care (01) | LOC: RAD 09:49 | PROVIDERS: ATTEND Internal Medicine Critical Care Medicine | DX: R06.00 Dyspnea, unspecified (principal); R91.8 Other nonspecific abnormal finding of lung field; J98.4 Other disorders of lung | CPT/HCPCS: 71046 ==